=== PATIENT | male | born 1985 | race Hispanic/Latino ===

== ENCOUNTER 2016-08-14 11:40 | Emergency (ER) | payer SELFPAY ==
[2016-08-14 12:10] VITALS: BP 136/84; PULSE 67; RESP 16; TEMP 98.8; O2SAT 99; BMI 33.2
[2016-08-14] MEDS ORDERED: Naproxen 550 mg Tab PO STA (12:45)
--- NOTE | 2016-08-14 12:49 | ED PDOC ---
Arrival/HPI - General Historian: Patient <Sharon Mcclendon PA-C - Last Filed: 08/14/16 15:48> <Chris Shoemaker - Last Filed: 08/14/16 16:12> - General Chief Complaint: ENT Problem Time Seen by Provider: 08/14/16 12:32 - History of Present Illness Narrative History of Present Illness (Text): 08/14/16 13:07 Patient presents to the emergency room complaining of one-week history of left ear pain with no other associated symptoms. Patient denies any fever, chills, headache, cough, sore throat, rash, discharge. Patient has no other complaints otherwise. PMD none (Sharon Mcclendon PA-C) Past Medical History - Provider Review Nursing Documentation Reviewed: Yes - Past History Past History: No Previous - Infectious Disease Hx of Infectious Diseases: None - Tetanus Immunization Tetanus Immunization: Unknown - Past Medical History Past Medical History: No Previous - Musculoskeletal/Rheumatological Hx Falls: No - Psychiatric Hx Depression: No Hx Emotional Abuse: No Hx Physical Abuse: No Hx Substance Use: No - Past Surgical History Past Surgical History: No Previous - Anesthesia Hx Anesthesia: No Hx Anesthesia Reactions: No Hx Malignant Hyperthermia: No - Suicidal Assessment Feels Threatened In Home Enviroment: No <Sharon Mcclendon PA-C - Last Filed: 08/14/16 15:48> Family/Social History - Physician Review Nursing Documentation Reviewed: Yes Family/Social History: No Known Family HX Smoking Status: Never Smoked Hx Alcohol Use: No Hx Substance Use: No Hx Substance Use Treatment: No <Sharon Mcclendon PA-C - Last Filed: 08/14/16 15:48> Allergies/Home Meds <Sharon Mcclendon PA-C - Last Filed: 08/14/16 15:48> <Chris Shoemaker - Last Filed: 08/14/16 16:12> Allergies/Adverse Reactions: Allergies No Known Allergies Allergy (Verified 10/28/14 17:06) Review of Systems - Review of Systems Constitutional: Normal. absent: Fatigue, Weight Change Eyes: Normal. absent: Vision Changes, Photophobia ENT: Normal, Other (otalgia). absent: Hearing Changes, Tinnitus Respiratory: Normal. absent: SOB, Cough Skin: Normal. absent: Rash, Pruritis <Sharon Mcclendon PA-C - Last Filed: 08/14/16 15:48> Physical Exam <Sharon Mcclendon PA-C - Last Filed: 08/14/16 15:48> <Chris Shoemaker - Last Filed: 08/14/16 16:12> - Physical Exam Narrative Physical Exam (Text): 08/14/16 13:08 GENERAL APPEARANCE: Patient is awake, alert, oriented x 3, in mild painful distress. SKIN: Warm, dry; (-) cyanosis, (-) rash. (-) Decubitus Ulcer EYES: (-) conjunctival pallor, (-) scleral icterus, (-) conjunctival hemorrhage. ENMT: Mucous membranes moist. B/L ear canals: wnl. L TM: (+) erythema with mild bulging. R TM: wnl. Airway patent: (-) stridor. Pharynx: (-) erythema, (-) exudate. NECK: (-) tenderness, (-) stiffness, (-) meningismus, (-) lymphadenopathy. CHEST AND RESPIRATORY: (-) accessory muscle use. Lungs: (-) rales, (-) rhonchi, (-) wheezes, (-) rub; breath sounds equal bilaterally. HEART AND CARDIOVASCULAR: (-) irregularity; (-) murmur, (-) gallop, (-) rub. (Sharon Mcclendon PA-C) Vital Signs Temp Pulse Resp BP Pulse Ox 08/14/16 12:08 98.8 F 67 16 136/84 99 Medical Decision Making <Sharon Mcclendon PA-C - Last Filed: 08/14/16 15:48> <Chris Shoemaker - Last Filed: 08/14/16 16:12> ED Course and Treatment: 08/14/16 12:45 31 yo M presents with L ear pain x 1 week, on exam, patient is noted to have OM of the L ear, will treat as such. Patient given amoxicillin po and naprosyn po. Based on history and exam, plan will be for outpatient follow-up. Prescription provided. Patient states he fully agrees with and understands discharge instructions. States that he agrees with the plan and disposition. Verbalized and repeated discharge instructions and plan. I have given the patient opportunity to ask any additional questions. Follow up with the clinic in 1-2 days without fail. Advised to take medication as prescribed. Return to the emergency room at any time for any new or worsening symptoms. (Sharon Mcclendon PA-C) - Medication Orders Current Medication Orders: Discontinued Medications Amoxicillin (Amoxil 500 Mg Cap) 500 mg PO STAT STA PRN Reason: Protocol Stop: 08/14/16 12:46 Last Admin: 08/14/16 13:07 Dose: 500 MG Naproxen (Anaprox Ds) 550 mg PO ONCE STA Stop: 08/14/16 12:46 Last Admin: 08/14/16 13:08 Dose: 550 MG - PA / STOCK WORKER / Resident Statement [facility] has reviewed & agrees with the documentation as recorded. <Sharon Mcclendon PA-C - Last Filed: 08/14/16 15:48> - PA / STOCK WORKER / Resident Statement [facility] has reviewed & agrees with the documentation as recorded. <Chris Shoemaker - Last Filed: 08/14/16 16:12> Disposition/Present on Arrival - Present on Arrival Any Indicators Present on Arrival: No History of DVT/PE: No History of Uncontrolled Diabetes: No Urinary Catheter: No History of Decub. Ulcer: No History Surgical Site Infection Following: None - Disposition Have Diagnosis and Disposition been Completed?: Yes Disposition Time: 12:47 Patient Plan: Discharge <Sharon Mcclendon PA-C - Last Filed: 08/14/16 15:48> <Chris Shoemaker - Last Filed: 08/14/16 16:12> - Disposition Diagnosis: Otitis media, left Disposition: HOME/ ROUTINE Condition: GOOD Discharge Instructions (ExitCare): Otitis Media (ED) Print Language: MAURITANIAN Additional Instructions: Thank you for letting us take care of you today. You were treated for otitis media left ear. The emergency medical care you received today was directed at your acute symptoms. If you were prescribed any medication, please fill it and take as directed. It may take several days for your symptoms to resolve. Return to the Emergency Department if your symptoms worsen, do not improve, or if you have any other problems. Please contact the clinic in 2 days for re-evaluation and follow up. Bring any paperwork you were given at discharge with you along with any medications you are taking to your follow up visit. Our treatment cannot replace ongoing medical care by a primary care provider (PCP) outside of the emergency department. Thank you for allowing the [facility] team to be part of your care today. Prescriptions: Amoxicillin 500 mg PO TID #30 tablet Naproxen 500 mg PO BID #30 tab Referrals: [facility] at [facility] [Outside] - Follow up with primary Forms: WORK NOTE
== END 2016-08-14 13:08 | disposition home or self-care (01) ==
LOC: ED 11:40
DX: H66.92 Otitis media, unspecified, left ear (principal)

== ENCOUNTER 2017-01-30 09:31 | Emergency (ER) | payer SELFPAY ==
[2017-01-30 09:40] VITALS: RESP 18; TEMP 97.7; O2SAT 99
[2017-01-30 09:42] VITALS: BMI 34.0
--- NOTE | 2017-01-30 09:56 | ED PDOC ---
Arrival/HPI - General Historian: Patient - History of Present Illness Time/Duration: Other (1 day) Symptom Onset: Sudden Quality: Throbbing Severity Level: 4 - General Chief Complaint: Lower Extremity Problem/Injury Time Seen by Provider: 01/30/17 09:41 - History of Present Illness Narrative History of Present Illness (Text): 01/30/17 09:53 31-year-old male presents today with right foot pain status post injury yesterday. Patient states while at work he dropped a heavy box on the right foot and has been having pain ever since. No medications have been taken for pain at home patient denies numbness weakness or tingling in the extremities. States he is able to ambulate with pain. Patient states he has a achy throbbing pain over the lateral dorsal aspect of the foot. Denies calf pain. Denies ankle pain. No other complaints (Kera Montaño) Past Medical History - Provider Review Nursing Documentation Reviewed: Yes - Travel History Have you recently traveled outside [place] w/in the past 3 mons?: No - Past History Past History: No Previous - Infectious Disease Hx of Infectious Diseases: None - Tetanus Immunization Tetanus Immunization: Unknown - Past Medical History Past Medical History: No Previous - Musculoskeletal/Rheumatological Hx Falls: No - Psychiatric Hx Depression: No Hx Emotional Abuse: No Hx Physical Abuse: No Hx Substance Use: Yes - Past Surgical History Past Surgical History: No Previous - Anesthesia Hx Anesthesia: No Hx Anesthesia Reactions: No Hx Malignant Hyperthermia: No - Suicidal Assessment Feels Threatened In Home Enviroment: No Family/Social History - Physician Review Nursing Documentation Reviewed: Yes Family/Social History: Unknown Family HX Smoking Status: Never Smoked Hx Alcohol Use: No Hx Substance Use: Yes Substance used: Marijuana Hx Substance Use Treatment: No Allergies/Home Meds Allergies/Adverse Reactions: Allergies No Known Allergies Allergy (Verified 01/30/17 09:49) Review of Systems - Review of Systems Constitutional: absent: Fatigue, Fevers Respiratory: absent: SOB, Cough Cardiovascular: absent: Chest Pain, Palpitations Gastrointestinal: absent: Abdominal Pain, Nausea Genitourinary Male: absent: Dysuria Musculoskeletal: Arthralgias. absent: Back Pain Skin: absent: Rash, Pruritis Neurological: absent: Headache, Dizziness Psychiatric: absent: Anxiety, Depression Physical Exam Vital Signs Reviewed: Yes Temperature: Afebrile Blood Pressure: Normal Pulse: Regular Respiratory Rate: Normal Appearance: Positive for: Well-Appearing, Non-Toxic, Comfortable Pain Distress: None Mental Status: Positive for: Alert and Oriented X 3 - Systems Exam Head: Present: Atraumatic Respiratory/Chest: Present: Clear to Auscultation Cardiovascular: Present: Regular Rate and Rhythm Upper Extremity: Present: Normal ROM Lower Extremity: Present: Normal Inspection, NORMAL PULSES, Normal ROM, Tenderness (right foot; + ttp over 4th and 5th metatarsals and toes, minimal swelling, no erythema; no ecchymosis; no step offs or crepitus. ankle non tender. no calf tenderness. no proximal fibular tenderness. sensation and distal pulses intact. cap refill < 2. ), Swelling, Neurovascularly Intact, Capillary Refill < 2 s. No: CALF TENDERNESS, Erythema, Deformity, Temperature Abnormalties Neurological: Present: GCS=15 Skin: Present: Warm, Dry, Normal Color Psychiatric: Present: Alert, Oriented x 3 Vital Signs Temp Pulse Resp BP Pulse Ox 01/30/17 09:39 97.7 F 74 18 127/93 H 99 Medical Decision Making ED Course and Treatment: 01/30/17 10:10 I was available for consultation during PA evaluation. The chart reviewed by me , and I agree with disposition. The documented history was done by the physician mergers and acquisitions manager. The documented physical exam was done by physician mergers and acquisitions manager. The documented procedures were done by physician mergers and acquisitions manager. (Tomas Niño) 01/30/17 09:56 Patient nontoxic well-appearing in no distress with stable vital signs X-rays of the right foot; FINDINGS: BONES: No acute displaced fracture. JOINTS: No dislocation. SOFT TISSUES: Soft tissue swelling. No evidence of radiopaque foreign body. OTHER FINDINGS: None. IMPRESSION: Soft tissue swelling. No acute displaced fracture, dislocation, or significant joint effusion identified. If symptoms persist, or if there is continued clinical concern, x-ray follow-up in 7-10 days should be considered. toradol IM Patient given barbara wrap; crutches given for ambulation. I discussed all results in depth with the patient advised to followup with the orthopedist within the next 2 days. Return if symptoms worsen persist or new symptoms develop Impression: Foot pain, contusion, foot Motrin every 6 hours as needed for pain Rest, ice, compression, elevation Use crutches for ambulation Followup with the orthopedist within the next 2 days Followup with primary care physician within the next 2 days Return if symptoms worsen persist or if new symptoms develop (Kera Montaño) - RAD Interpretation Radiology Orders: 01/30/17 09:51 FOOT RIGHT 3 VIEWS ROUTINE [RAD] Stat - Medication Orders Current Medication Orders: Discontinued Medications Ketorolac Tromethamine (Toradol) 60 mg IM STAT STA Stop: 01/30/17 09:52 Last Admin: 01/30/17 10:00 Dose: 60 mg Disposition/Present on Arrival - Present on Arrival Any Indicators Present on Arrival: No History of DVT/PE: No History of Uncontrolled Diabetes: No Urinary Catheter: No History of Decub. Ulcer: No History Surgical Site Infection Following: None - Disposition Have Diagnosis and Disposition been Completed?: Yes Disposition Time: 10:51 Patient Plan: Discharge - Disposition Diagnosis: Foot pain, Contusion, foot Disposition: HOME/ ROUTINE Patient Problems: Current Active Problems Problem Status Onset Contusion, foot Acute Foot pain Acute Condition: GOOD Discharge Instructions (ExitCare): Arthralgia (ED) Additional Instructions: Motrin every 6 hours as needed for pain Rest, ice, compression, elevation Use crutches for ambulation Followup with the orthopedist within the next 2 days Followup with primary care physician within the next 2 days Return if symptoms worsen persist or if new symptoms develop Prescriptions: Ibuprofen [Motrin] 600 mg PO Q6H PRN #20 tab PRN Reason: pain/fever reduction Referrals: Marito Persaud III, MD [Medical Doctor] - Follow up with primary Emily Yang MD [Staff Provider] - Follow up with primary [facility] [place] [Outside] - Follow up with primary Forms: [employer] (Japanese), WORK NOTE
--- NOTE | 2017-01-30 10:44 | RAD ---
PROCEDURE: Right Foot Radiographs. HISTORY: foot pain/ lateral aspect, dropped box on foot COMPARISON: None available. FINDINGS: BONES: No acute displaced fracture. JOINTS: No dislocation. SOFT TISSUES: Soft tissue swelling. No evidence of radiopaque foreign body. OTHER FINDINGS: None. IMPRESSION: Soft tissue swelling. No acute displaced fracture, dislocation, or significant joint effusion identified. If symptoms persist, or if there is continued clinical concern, x-ray follow-up in 7-10 days should be considered.
[2017-01-30 11:02] VITALS: BP 125/89; PULSE 69
== END 2017-01-30 11:06 | disposition home or self-care (01) ==
LOC: ED 09:31
DX: S90.31XA Contusion of right foot, initial encounter (principal); W20.8XXA Other cause of strike by thrown, projected or falling object, initial encounter; M79.671 Pain in right foot
CPT/HCPCS: 73630; 96372; 99284; J1885